=== PATIENT | female | born 1995 ===

== ENCOUNTER 2017-05-15 15:50 | Emergency (ER) | payer OTHER ==
[2017-05-15 18:05] VITALS: BMI 25.4
--- NOTE | 2017-05-15 18:49 | OBHP ---
Datetime: 05/15/2017 18:26 IP Adm Impression: , intrauterine IP Chief Complaint Other: palpitation IP Admit Plan: Observation/Evaluation Admit Comment, IP Provider: 21 yo at 29 weeks GA, EDC 07/31/17 by LMP, confirmed with first tri mester US as per pt presents to OB ED w/ complaints of racing heart around 9 am to 11 am and again at 2 pm for several minutes. Pt denies chest pain, dyspnea, dizziness, blurry vision at the time of pal pitation. Denies any hx cardiac problems/thyroid disease/anemia/anxiety. Denies any hx similar symtom s in the past. Denies any caffeine intake. pt reports + fm. denies vb, ctx or lof. 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 allergies: NKDA assessment: 21 yo at 29 weeks GA, EDC 07/31/17 by LMP, confirmed with first trimester US as p er pt presents to OB ED w/ complaints intermittent palpitation since 9 am this AM. Plan: NST looks good Pt is cleared from [facility] to be further evaluated in ED. case presented and discussed with on-call OB Hospitalist Dr. Vamsi Carter, PGY1 The patient was seen with resident I agree with the note. The patient was cleared obstetrically an d since the emergency room for evaluation of palpitations Extremities - PN: Normal Abdomen - PN: Normal Back - PN: Normal Lungs - PN: Normal Heart - PN: Normal Neurologic - PN: Normal HEENT - PN: Normal General - PN: Normal FHR - Baseline A Provider: 140 EGA AdmitDate IP: 29.0 Vital Signs Provider: Reviewed IP Chief Complaint: Maternal discomfort NICHD Variability Prov Fetus A: Moderate 6-25bpm NICHD Accel Fetus A IP Provider: 15X15 FHR Category Provider Fetus A: Category I NICHD Decel Fetus A IP Provider: None Genitourinary Exam: Normal DTRs - PN: Normal
== END 2017-05-15 23:00 | disposition home or self-care (01) ==
LOC: H.EROB2 15:50 → H.ER 15:50
DX: O26.93 Pregnancy related conditions, unspecified, third trimester (principal); R00.2 Palpitations; Z3A.29 29 weeks gestation of pregnancy

== ENCOUNTER 2017-05-15 19:41 | Emergency (ER) | payer OTHER ==
[2017-05-15 19:41] VITALS: BMI 25.4
[2017-05-15 19:44] VITALS: RESP 18
[2017-05-15] MEDS ORDERED: Lactated Ringer's 1,000 ML IV STA (20:01)
--- NOTE | 2017-05-15 20:23 | ED PDOC ---
HPI: General Adult Time Seen by Provider: 05/15/17 19:50 Chief Complaint (Nursing): Palpitations Chief Complaint (Provider): Palpitations History Per: Patient History/Exam Limitations: no limitations Onset/Duration Of Symptoms: Hrs Current Symptoms Are (Timing): Still Present Additional Complaint(s): 21 y/o female, 28 weeks with first , presents to the emergency department with a complaint of 2 episodes of spontaneous palpitations described as "heart beat was going really fast" around 9am today and 14:00. States palpitations start at rest and resolves spontaneous after a few hours. Denies caffeine, alcohol, or medication use, shortness of breath, chest pain, dizziness , nausea, blurry vision, and generalized weakness. Of note, patient called her OB Dr. Tod Stewart MD who advised her to visit the emergency department. Patient intially presents to the OB emergency department about 4 hours prior to arrival in the emergency room and underwent monitoring with Dr. Kirit Agustin which was normal. Patient is currently asymptomatic. Past Medical History Reviewed: Historical Data, Nursing Documentation, Vital Signs Vital Signs: Last Vital Signs Temp 98 F 05/15/17 19:42 Pulse 80 05/15/17 19:56 Resp 18 05/15/17 19:42 BP 118/73 05/15/17 19:56 Pulse Ox 100 05/15/17 22:17 - Medical History PMH: No Chronic Diseases - Family History Family History: States: Unknown Family Hx, Diabetes - Social History Current smoker - smoking cessation education provided: No Alcohol: None Drugs: Denies - Home Medications Home Medications: Ambulatory Orders Medication Instructions Recorded Lidocaine 5% [Lidoderm] 1 ea TD DAILY PRN #30 patch 11/13/15 Naproxen [Naprosyn] 1 tab PO BID PRN #60 tab 11/13/15 - Allergies Allergies/Adverse Reactions: Allergies Allergy/AdvReac Type Severity Reaction Status Date / Time No Known Allergies Allergy Verified 11/08/15 21:13 Review of Systems ROS Statement: Except As Marked, All Systems Reviewed And Found Negative Constitutional: Negative for: Weakness (Generalized), Other (Caffeine, alcohol, or medication use) Eyes: Negative for: Other (Blurry vision) Cardiovascular: Positive for: Palpitations. Negative for: Chest Pain Respiratory: Negative for: Shortness of Breath Gastrointestinal: Negative for: Nausea Neurological: Negative for: Weakness, Dizziness Physical Exam - Reviewed Nursing Documentation Reviewed: Yes Vital Signs Reviewed: Yes - Physical Exam Appears: Positive for: Non-toxic, No Acute Distress Head Exam: Positive for: ATRAUMATIC, NORMAL INSPECTION, NORMOCEPHALIC Skin: Positive for: Normal Color, Warm, Dry Eye Exam: Positive for: Normal appearance. Negative for: Conjunctival injection ENT: Positive for: Normal ENT Inspection. Negative for: Pharyngeal Erythema Neck: Positive for: Normal, Supple Cardiovascular/Chest: Negative for: Regular Rate, Rhythm, Murmur Respiratory: Positive for: Normal Breath Sounds. Negative for: Accessory Muscle Use, Respiratory Distress Gastrointestinal/Abdominal: Positive for: Normal Exam, Soft. Negative for: Tenderness (gravid uterus nontender), Guarding, Rebound - Laboratory Results Result Diagrams: 05/15/17 20:56 05/15/17 20:56 - ECG O2 Sat by Pulse Oximetry: 100 (RA) Pulse Ox Interpretation: Normal Medical Decision Making Medical Decision Making: Time: 2000 Initial impression: Palpitations. Differential include electrolyte abnormality, thyroid disfunction, anxiety, and reflux. Initial plan: --EKG --labs --Urine DIP --Lactated Ringer's 1L IV Per hour --Associate Medical Director --Reevaluation Time: 22:17 --No clinically lab abnormalities --No recurrence of symptoms Stable for DC. Scribe Attestation: Documented by Katia Mendoza, acting as a scribe for Pilar Peraza MD. Provider Scribe Attestation: All medical record entries made by the Scribe were at my direction and personally dictated by me. I have reviewed the chart and agree that the record accurately reflects my personal performance of the history, physical exam, medical decision making, and the department course for this patient. I have also personally directed, reviewed, and agree with the discharge instructions and disposition. Disposition - Clinical Impression Clinical Impression: Palpitations Counseled Patient/Family Regarding: Studies Performed, Diagnosis, Need For Followup - Disposition Referrals: Tod Stewart MD [Staff Provider] - (FOLLOW UP WITH DR STEWART BY THE END OF THE WEEK) Disposition: Routine/Home Disposition Time: 22:00 Condition: GOOD Instructions: Palpitations (ED)
[2017-05-15 21:01] LABS: BASO % 0.2 % (0.0-2.0); EOS % 0.4 % (0.0-4.0); HEMATOCRIT 33.5 % (34.0-47.0); LYMPH # 1.7 K/uL (1.0-4.3); LYMPH % 18.4 % (20.0-40.0); MEAN CORPUSCULAR HEMOGLOBIN 29.8 pg (27.0-31.0); MEAN CORPUSCULAR HGB CONC 33.5 g/dL (33.0-37.0); MEAN PLATELET VOLUME 10.4 fl (7.2-11.7); MONO # 0.9 K/uL (0.0-0.8); MONO % 9.6 % (0.0-10.0); NEUT # 6.5 K/uL (1.8-7.0); NEUT % 71.4 % (50.0-75.0); RED CELL DISTRIBUTION WIDTH 13.4 % (11.5-14.5); WHITE BLOOD COUNT 9.2 K/uL (4.8-10.8)
[2017-05-15 21:29] LABS: ALB/GLOB RATIO 1.1 (1.0-2.1); ALKALINE PHOSPHATASE 77 U/L (38-126); ALT/SGPT 23 U/L (9-52); AST/SGOT 18 U/L (14-36); BILIRUBIN,TOTAL 0.2 mg/dl (0.2-1.3); BLOOD UREA NITROGEN 6 mg/dl (7-17); CALCIUM 9.6 mg/dL (8.4-10.2); CARBON DIOXIDE 22 mmol/L (22-30); CHLORIDE 106 mmol/L (98-107); GFR AFRICAN-AMERICAN > 60; GLUCOSE,RANDOM 84 mg/dL (65-105); MAGNESIUM 1.9 MG/DL (1.6-2.3); PHOSPHOROUS 4.3 mg/dl (2.5-4.5); SODIUM 138 mmol/l (132-148); TOTAL PROTEIN 7.3 G/DL (6.3-8.2)
[2017-05-15 21:58] LABS: THYROID STIMULATING HORMONE 3.48 mIU/ML (0.46-4.68)
[2017-05-15 23:24] VITALS: BP 110/67; PULSE 83; TEMP 98; O2SAT 99
--- NOTE | 2017-05-16 10:22 | CARD ---
APPROVED REPORT EKG Measurement Heart [id number] <Conclusion> Normal sinus rhythm Normal ECG
== END 2017-05-15 23:28 | disposition home or self-care (01) ==
LOC: H.ER 19:41
DX: O26.93 Pregnancy related conditions, unspecified, third trimester (principal); R00.2 Palpitations; Z3A.28 28 weeks gestation of pregnancy

== ENCOUNTER 2017-07-17 20:32 | Emergency (ER) | payer OTHER ==
[2017-05-30 20:19] VITALS: BMI 25.4
--- NOTE | 2017-07-17 23:07 | OBADHP ---
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 Lungs: clear to auscultation bilaterally, no wheezing Abdomen: nontender, gravid CVA: negative Lower extremities: negative for pitting edema SSE/PELVIC EXN:no vaginal bleed or pooling of amniotic fluid in vaginal canal; cervix 1 cm, long Bed side u/s: vertex position MONITOR Variablity: moderate: 6-25 bpm ACC: 15x15 DECC: none FHR: 130 ASSESSMENT: 21 yo IUP at 38 wks with no obstetrics history cervix at 1 cm dilation, long, no vaginal bleed or active labor. Inconsistent contractions PLAN: False labor; Patient cleared to go home; she has an appt with Dr. Walls tomorrow Pt asked to return should she experience vaginal bleed, consistent contractions, decrease mo vement. JENNY PGY1 The patient was seen with the resident I agree with the note. Pt to be admitted secondary to SROM 37 weeks vertex presentation adequate pelvis, anticipate Pelvic Type - PN: Adequate Extremities - PN: Not Done Abdomen - PN: Normal Back - PN: Normal Breast - PN: Not Done Lungs - PN: Normal Heart - PN: Normal Thyroid - PN: Not Done Neurologic - PN: Normal HEENT - PN: Normal General - PN: Normal FHR - Baseline A Provider: 130 Pool Provider: Negative Vital Signs Provider: Reviewed; Within Normal Limits IP Chief Complaint: Uterine contractions NICHD Variability Prov Fetus A: Moderate 6-25bpm NICHD Accel Fetus A IP Provider: 15X15 FHR Category Provider Fetus A: Category I NICHD Decel Fetus A IP Provider: None Dilatation, Provider: 1 Genitourinary Exam: Normal DTRs - PN: Normal EGA AdmitDate IP: 38.0 IP Adm Impression: Term, intrauterine ; No Active Labor; Intact Membranes IP Admit Plan: Discharge home Datetime: 05/15/2017 18:26 IP Chief Complaint Other: palpitation
[2017-07-18 05:21] VITALS: BP 116/77; PULSE 107; TEMP 98.4
== END 2017-07-17 22:25 | disposition home or self-care (01) ==
LOC: H.EROB2 20:32
DX: O47.1 False labor at or after 37 completed weeks of gestation (principal); Z3A.38 38 weeks gestation of pregnancy

== ENCOUNTER 2017-07-20 20:13 | Emergency (ER) | payer OTHER ==
[2017-05-30 20:19] VITALS: BMI 25.4
[2017-07-21 01:38] VITALS: BP 110/65; PULSE 87; RESP 17; TEMP 98.2
--- NOTE | 2017-07-21 20:25 | OBHP ---
Datetime: 07/20/2017 20:21 IP Adm Impression: Term, intrauterine ; No Active Labor; Intact Membranes IP Admit Plan: Observation/Evaluation; Discharge home Admit Comment, IP Provider: 21-year-old at 30 weeks and 4 days gestational age presented to OB ED complaining of contractions. Patient denies any vaginal bleeding or leakage of fluids. Patient re ports good movement. Otherwise, patient without complaints. records reviewed. course unremarkable. Past medical history none Past surgical history none Medications vitamins No known drug allergies Obstetrical history Social history no tobacco, no drugs, no alcohol Physical exam: Deferred a physical exam findings Assessment: 21-year-old at 38 weeks gestational age. No evidence of labor at this time. Both maternal we ll-being and well-being reassuring at this time. Plan: Patient discharged home with labor precautions. Patient has follow-up scheduled this week in offic e. Pelvic Type - PN: Adequate Extremities - PN: Normal Abdomen - PN: Normal Back - PN: Normal Breast - PN: Normal Lungs - PN: Normal Heart - PN: Normal Thyroid - PN: Normal Neurologic - PN: Normal HEENT - PN: Normal General - PN: Normal FHR - Baseline A Provider: 120s-130s Membranes, Provider: Intact Contraction Comments Provider: occasional EGA AdmitDate IP: 38.3 Vital Signs Provider: Reviewed; Within Normal Limits IP Chief Complaint: Uterine contractions NICHD Variability Prov Fetus A: Moderate 6-25bpm NICHD Accel Fetus A IP Provider: 15X15 FHR Category Provider Fetus A: Category I NICHD Decel Fetus A IP Provider: None Dilatation, Provider: 1 Effacement, Provider: long Station, Provider: high Genitourinary Exam: Normal DTRs - PN: Normal
== END 2017-07-20 21:30 | disposition home or self-care (01) ==
LOC: H.EROB2 20:13
DX: O47.1 False labor at or after 37 completed weeks of gestation (principal); Z3A.38 38 weeks gestation of pregnancy

== ENCOUNTER 2017-08-02 07:15 | Inpatient (IN) | payer OTHER ==
[2017-08-02] MEDS ORDERED: Lactated Ringer's 1,000 ML IV SCH (07:45)
[2017-08-02 07:46] VITALS: BMI 22.3
[2017-08-02] MEDS ORDERED: Lactated Ringer's 1,000 ML IV ONE (08:00)
[2017-08-02 08:45] LABS: BASO % 0.3 % (0.0-2.0); EOS # 0.1 K/uL (0.0-0.7); EOS % 0.8 % (0.0-4.0); LYMPH # 1.8 K/uL (1.0-4.3); LYMPH % 27.4 % (20.0-40.0); MEAN CORPUSCULAR HEMOGLOBIN 26.8 pg (27.0-31.0); MEAN CORPUSCULAR HGB CONC 32.7 g/dL (33.0-37.0); MEAN PLATELET VOLUME 11.3 fl (7.2-11.7); MONO # 0.7 K/uL (0.0-0.8); MONO % 10.7 % (0.0-10.0); NEUT # 3.9 K/uL (1.8-7.0); NEUT % 60.8 % (50.0-75.0); NRBC % 0.1 % (0.0-0.0); RED CELL DISTRIBUTION WIDTH 16.1 % (11.5-14.5); WHITE BLOOD COUNT 6.5 K/uL (4.8-10.8)
[2017-08-02] MEDS ORDERED: Oxytocin 30 units/LR 500ML 30 U/500 ML BAG IV ONE (11:42)
[2017-08-02] MEDS ORDERED: Fentanyl/Bupivacaine HCl 250 ML EPI ONE (14:48)
[2017-08-02] MEDS ORDERED: Bupivacaine HCl 0.25% PF (10 ml) Inj ONE (14:49)
[2017-08-02] MEDS ORDERED: Lidocaine 1% Inj (20ml) ONE (22:36)
--- NOTE | 2017-08-03 01:18 | OBADHP ---
Datetime: 08/03/2017 01:12 Admit Comment, IP Provider: iup at term uneventful care admitted for induction Pelvic Type - PN: Adequate Extremities - PN: Normal Abdomen - PN: Normal Back - PN: Normal Breast - PN: Normal Lungs - PN: Normal Heart - PN: Normal Thyroid - PN: Normal Neurologic - PN: Normal HEENT - PN: Normal General - PN: Normal Presentation-Admit: Vertex FHR - Baseline A Provider: 120 Membranes, Provider: Intact Contraction Comments Provider: irregular Gestation - Est Wks by US: 40+ Vital Signs Provider: Reviewed; Within Normal Limits NICHD Variability Prov Fetus A: Moderate 6-25bpm NICHD Accel Fetus A IP Provider: 10X10 FHR Category Provider Fetus A: Category I NICHD Decel Fetus A IP Provider: None Dilatation, Provider: 2 Effacement, Provider: 75 Station, Provider: -1 Genitourinary Exam: Normal DTRs - PN: Normal IP Adm Impression: Postterm, intrauterine ; Intact Membranes IP Admit Plan: Admit to unit; Initiate labor induction protocol Datetime: 07/20/2017 20:21 IP Chief Complaint: Uterine contractions EGA AdmitDate IP: 38.3
--- NOTE | 2017-08-03 01:21 | OBDS ---
DELIVERY PERSONNEL Delivery Doctor: Yulia Palacios MD Utility Repairer: Marina Rowe RN Anesthesiologist: Skye Riddle MD MATERNAL INFORMATION Delivery Anesthesia: Epidural Medications in Delivery: Oxytocin 30 units in 500 mL Estimated Blood Loss (ml): 300 Placenta Cultured: No Maternal Complications: None Provider Comments: delivery of live baby girl 9/9 clear fluid with vacuum assistance LABOR SUMMARY EDC: 07/31/2017 00:00 No. Babies in Womb: 1 Attempted: No Labor Anesthesia: Epidural LABOR INFORMATION Reason for Induction: Postterm Onset of Labor: 08/02/2017 20:30 Complete Dilatation: 08/02/2017 22:45 Oxytocin: Induction Group B Beta Strep: Negative Steroids Given: None Reason Steroids Not Administered: Not Applicable MEMBRANES Membranes Rupture Method: Artificial Rupture of Membranes: 08/02/2017 14:15 Length of Rupture (hrs): 10.35 Amniotic Fluid Color: Clear Amniotic Fluid Amount: Scant Amniotic Fluid Odor: Normal STAGES OF LABOR Stage 1 hrs: 2 Stage 1 min: 15 Stage 2 hrs: 1 Stage 2 min: 51 Stage 3 hrs: 0 Stage 3 min: 4 Total Time in Labor hrs: 4 Total Time in Labor min: 10 VAGINAL DELIVERY Episiotomy: Median Laceration Extension: N/A Laceration Type: None Laceration Repair: Not Applicable Laceration Repair Note: repair of medline episiotomy with 2-0 chromic Initial Vag Sponge Count: 5 Final Vag Sponge Count: 5 Initial Vag Sharps Count: 3 Final Vag Sharps Count: 3 Sponge Count Correct: Yes Sharps Count Correct: Yes Count Comment: correct BABY A INFORMATION Delivery Date/Time: 08/03/2017 00:36 Method of Delivery: Vaginal Born in Route : No : N/A Forceps: N/A Vacuum Extraction: Successful Shoulder Dystocia : No ASSISTED DELIVERY BABY A Indication for Assisted Delivery: Vacuum assist Vacuum Number of Pulls: 2 Vacuum Number of PopOffs: 1 SHOULDER DYSTOCIA BABY A Infant Delivery Date/Time: 08/03/2017 00:36 PRESENTATION/POSITION BABY A Presentation: Cephalic Cephalic Presentation: Vertex PLACENTA INFORMATION BABY A Placenta Delivery Time : 08/03/2017 00:40 Placenta Method of Delivery: Spontaneous Placenta Status: Delivered SCORES BABY A Heart Rate 1 min: >100 bpm Resp Effort 1 min: Good Cry Reflex Irritability 1 min: Cough or Sneeze or Pulls Away Muscle Tone 1 min: Active Motion Color 1 min: Body [place], Extremities Blue Resuscitation Effort 1 min: Tactile Stimulation SCORE 1 MIN: 9 Heart Rate 5 min: >100 bpm Resp Effort 5 min: Good Cry Reflex Irritability 5 min: Cough or Sneeze or Pulls Away Muscle Tone 5 min: Active Motion Color 5 min: Body [place], Extremities Blue Resuscitation Effort 5 min: Tactile Stimulation SCORE 5 MIN: 9 INFANT INFORMATION BABY A Gestational Age at Delivery: 40.3 Gestational Status: Post-term Infant Outcome : Liveborn Infant Condition : Stable Infant Sex: Female IDENTIFICATION/MEDS BABY A ID Band Number: [id number] ID Band Location: Left Leg; Left Arm WEIGHT/LENGTH BABY A Infant Birthweight (gms): 3440 Weight (lb): 7 Infant Weight (oz): 9 CORD INFORMATION BABY A No. Cord Vessels: 3 Nuchal Cord : N/A Cord Blood Taken: Yes Infant Suction: Mouth; Nose
[2017-08-03] MEDS ORDERED: Oxycodone/Acetaminophen 5/325 mg Tab PO PRN ×4 (01:22→01:48)
[2017-08-03] MEDS ORDERED: Benzocaine/Menthol SPRAY TOP PRN ×2 (01:22→01:48)
[2017-08-04 06:57] LABS: HEMATOCRIT 29.5 % (34.0-47.0); MEAN CORPUSCULAR HEMOGLOBIN 26.8 pg (27.0-31.0); MEAN CORPUSCULAR HGB CONC 32.3 g/dL (33.0-37.0); RED CELL DISTRIBUTION WIDTH 16.3 % (11.5-14.5); WHITE BLOOD COUNT 10.9 K/uL (4.8-10.8)
--- NOTE | 2017-08-04 12:11 | OBPPN ---
Datetime: 08/04/2017 12:08 PP Pain Prov: Within normal limits PP Pain Prov comment: no SOB chest pain or leg pain PP Nausea Prov: Denies PP Flatus Prov: Yes PP Breasts Prov: Normal PP Lungs Prov: Normal PP Abdomen/Uterus Prov: Abnormal PP Lochia Prov: Normal PP Vulva/Perineum Prov: Not Done PP CVA Tenderness Prov: Normal PP Extremities Prov: Normal PP C/S Incision Prov: Not Applicable PP Progress Prov: Normal PP Comments Phys Exam Prov: breast not engorged NT; Abd soft ND fundus firm below the umb Ext no ed abraham or calf tenderness PP Impression Prov: Normal progression PP Plan Prov: Continue present management PP Progress Note Prov: OOB and ambulation Will get mannual platetellet count since lab shows low jenniffer ue. IP PP Procedures: None Vital Signs Provider PP: Reviewed
--- NOTE | 2017-08-05 10:08 | OBPPN ---
Datetime: 08/05/2017 10:04 PP Pain Prov: Within normal limits PP Nausea Prov: Denies PP Flatus Prov: Yes PP BM Prov: Yes PP Breasts Prov: Normal PP Heart Prov: Normal PP Lungs Prov: Normal PP Abdomen/Uterus Prov: Normal PP Lochia Prov: Normal PP Vulva/Perineum Prov: Normal PP CVA Tenderness Prov: Normal PP Extremities Prov: Normal PP Progress Prov: Normal PP Impression Prov: Normal progression PP Plan Prov: Continue present management PP Progress Note Prov: stable ppd2 continue present care IP PP Procedures: None
--- NOTE | 2017-08-05 10:12 | OBDCSUM ---
Datetime: 08/05/2017 09:20 Discharged to, Provider: Home Follow up at, Provider: Dr. Palacios Disch Instr Activity: Normal activity; May be up to bathroom; May be up for meals; May Shower Disch Instr Diet: Regular Discharge Instructions, Provider: Routine instructions given Discharge Diagnosis, Provider: Term Delivered Discharge Time: 08/05/2017 09:20 Follow up in weeks, Provider: 4-6 weeks Disch Referrals: None Disch Activity Restrictions: No exercising; No lifting; No driving; Minimize walking; Minimize stair -climbing; No sexual activity; Nothing in vagina - Dresser, tampons, douche Discharge Comment, Provider: dc home today rto 4-6 weeks call office if any problems will discharge after results of cbc Contraception after Delivery: Undecided
[2017-08-05 10:23] LABS: BASO % 0.4 % (0.0-2.0); EOS # 0.1 K/uL (0.0-0.7); EOS % 0.7 % (0.0-4.0); HEMATOCRIT 31.8 % (34.0-47.0); LYMPH # 1.5 K/uL (1.0-4.3); MEAN CELL VOLUME 82.6 fl (81.0-99.0); MEAN CORPUSCULAR HGB CONC 32.7 g/dL (33.0-37.0); MEAN PLATELET VOLUME 10.7 fl (7.2-11.7); MONO # 0.8 K/uL (0.0-0.8); MONO % 8.4 % (0.0-10.0); NEUT # 7.4 K/uL (1.8-7.0); NEUT % 75.5 % (50.0-75.0); RED CELL DISTRIBUTION WIDTH 16.6 % (11.5-14.5); WHITE BLOOD COUNT 9.8 K/uL (4.8-10.8)
--- NOTE | 2017-08-05 13:50 | CP.PCM.PN ---
Subjective - Date & Time of Evaluation Date of Evaluation: 08/05/17 Time of Evaluation: 13:44 - Subjective Subjective: This is a 21 yrs old female who was admitted to [facility] for delivery of her first baby. On admission her Platelet count was slightly low at 120K after delivery the count [id number] to 104 K by a machine count, but manual count was 126, She had no excessive bleeding during her delivery or before that. Today the machine count is 136. I feel she can go home with that count, and have repeat count after 3-4 days. , No family history of thrombocytopenia, and she does not give a h/o bleeding either. Objective - Medications Medications: Current Medications Benzocaine/Menthol (Dermoplast) 1 sprays TOP PRN PRN PRN Reason: Perineal Discomfort Last Admin: 08/03/17 03:38 Dose: 1 sprays Docusate Sodium (Colace) 100 mg PO BID DENNY Last Admin: 08/05/17 12:17 Dose: Not Given Ibuprofen (Motrin Tab) 600 mg PO Q6 PRN PRN Reason: Pain, Mild (1-3) Last Admin: 08/03/17 17:32 Dose: 600 mg Oxycodone/Acetaminophen (Percocet 5/325 Mg Tab) 1 tab PO Q4 PRN PRN Reason: Pain, moderate (4-7) Stop: 08/06/17 01:23 Oxycodone/Acetaminophen (Percocet 5/325 Mg Tab) 2 tab PO Q4 PRN PRN Reason: Pain, severe (8-10) Stop: 08/06/17 01:23 Sennosides (Senokot Tab) 17.2 mg PO HS DENNY Last Admin: 08/04/17 23:03 Dose: Not Given - Labs Labs: 08/05/17 10:00 - Additional Findings Additional findings: Physical exam; Alert, well oriented in no acute distress Neck; supple, no adenopathy Chest; Clear, no rales or rhonchi Heart; RSR, no murmur Abd; Soft, no mass or h/s megaly. Assessment and Plan - Assessment and Plan (Free Text) Assessment: Impression; Mild thrombocytopenia post , but was improving already. Plan: Plan; Would repeat CBBC in 3-4 days.
[2017-08-05 19:06] VITALS: BP 123/81; PULSE 69; RESP 18; TEMP 98.1; O2SAT 100
== END 2017-08-05 11:15 | disposition home or self-care (01) | DRG 775 ==
LOC: H.L&D 07:45 → H.OB/GYN 08-03 03:00
PROVIDERS: ADMIT Specialist; ATTEND Specialist
PROC: 0W8NXZZ Division of Female Perineum, External Approach (ICD-10-PCS; principal; 2017-08-02)
PROC: 10E0XZZ Delivery of Products of Conception, External Approach (ICD-10-PCS; 2017-08-02)
PROC: 4A1HXCZ Monitoring of Products of Conception, Cardiac Rate, External Approach (ICD-10-PCS; 2017-08-02)
DX: O48.0 Post-term pregnancy (principal); D69.6 Thrombocytopenia, unspecified; O99.12 Other diseases of the blood and blood-forming organs and certain disorders involving the immune mechanism complicating childbirth; Z37.0 Single live birth; Z3A.40 40 weeks gestation of pregnancy